=== PATIENT | female | born 1945 | race Two or more races ===

== ENCOUNTER 2024-08-08 10:08 | Inpatient (IN) | payer OTHER ==
[~2024-08-08] VITALS: Ht 162.6 cm; Wt 42.4 kg
--- NOTE | 2024-08-08 10:18 | ED.PDOC ---
Altered Mental Status HPI Comments 78 year old female ARLETH presents to the ED with chief complaint of ALOC and fall. EMS reports patient is coming from a skilled nursing where she had fallen 3 days ago, injuring her left foot. EMS relays that the staff at the skilled nursing has noted the patient is more altered than usual for the past 3 days, locking h erself in her room as well, and appearing A/O x1. Patient able to move all extremities. EMS notes patient patient has not been taking her dementia and psychiatric medication. Patient unable to answer questions at this time. 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: Unknown Family History Family History: Reviewed,noncontributory to illness, Unknown Social History Smoker: Non-Smoker Alcohol: Denies ETOH Use Drugs: Denies Drug Use Lives In: Assisted Care, [facility] Unable to Obtain due to: Altered Mental Status All Other Systems: Reviewed and Negative Physical Exam General Appearance: Moderate Distress, Normal HEENT: Normal ENT Inspection, PERRL/EOMI Neck: Full Range of Motion, Non-Tender, Normal, Normal Inspection Respiratory: Chest Non-Tender, Lungs Clear, No Accessory Muscle Use, No Respiratory Distress, Normal Breath Sounds Cardiovascular: No Edema, No JVD, No Murmur, No Gallop, Normal Peripheral Pulses, Regular Rate/Rhythm Breast Exam: Deferred Gastrointestinal: No Organomegaly, Non Tender, No Pulsatile Mass, Normal Bowel Sounds, Soft Genitalia: Deferred Pelvic: Deferred Rectal: Deferred Extremities: No calf tenderness, Normal capillary refill, Normal inspection, Normal range of motion, Non-tender, No pedal edema Musculoskeletal : Apperance: Normal Neurologic: Disoriented, No Motor Deficits, No Sensory Deficits Cerebellar Function: NOT DONE Reflexes: NOT DONE Skin: Dry, Normal Color, Warm Peripheral Pulses: 3+ Radial (R), 3+ Radial (L) Lymphatic: No Adenopathy Was a procedure done? Was a procedure done?: No Differential Diagnosis (ALOC) Differential Diagnosis: Dehydration, Encephalopathy X-Ray, Labs, Meds, VS Vital Signs Date Time Temp Pulse Resp B/P (MAP) Pulse Ox O2 Delivery O2 Flow Rate FiO2 08/08/24 10:10 97.0 74 18 139/78 (98) 96 97.0 Lt Foot XR: Limited examination secondary to patient positioning. There is no evidence of acute fracture or dislocation. Soft tissues are unremarkable. Patient disoriented. Moving all extremities. Chest x-ray reviewed does not show any acute changes. Vitals stable. Unable to get a history from the patient. She has not been taking her medication. Psychiatric history. Possible sepsis from urinary tract infection. No sign of any injuries pain She will need psychiatric evaluation after medical clearance. Continue to monitor. Images Reviewed?: Images reviewed and evaluated by me Time of 1ST Reevaluation: 11:14 Reevaluation 1ST: Unchanged Patient Education/Counseling: Diagnosis, Treatment Family Education/Counseling: No Family Present Additional Information Previous visit documents reviewed: None The following tests were ordered, and results were reviewed by me: BMP, CBC, UA, Troponin, Left foot XR Additional Information was gathered from interviewing the following independent historians: EMS I reviewed and agreed with the following test results read by other providers: Left foot XR I discussed treatment and results with medical personnel and: Patient Departure 1 Departure Time of Disposition: 13:37 Impression: Primary Impression: Metabolic encephalopathy Disposition: ADMITTED INPATIENT Admit to: Med Surg Condition: Guarded Critical Care Note Critical Care Time?: No Stability Stability form required: No Heart Score Heart Score: Heart Score Response (Comments) Value History N/A 0 EKG N/A 0 Age N/A 0 Risk Factors N/A 0 Troponin N/A 0 Total 0 I personally scribed for JACK GRIFFITH MD ([email or web address]) on 08/08/24 at 10:18. Electronically submitted by Xu Goldberg ([email or web address]). I personally scribed for JACK GRIFFITH MD ([email or web address]) on 08/08/24 at 13:17. Electronically submitted by Xu Goldberg ([email or web address]). JACK GRIFFITH MD Aug 08, 2024 10:18
--- NOTE | 2024-08-08 12:04 | DVH ---
CLINICAL INDICATION: Trauma TECHNIQUE: XY L FOOT 2 VIEW XRAY Comparison: None FINDINGS/IMPRESSION: : Limited examination secondary to patient positioning. There is no evidence of acute fracture or dislocation. Soft tissues are unremarkable.
[2024-08-08 14:54] LABS: Basophils # (auto) 0.1 10 ^3/uL (0-0.2); Basophils % (auto) 1.2 % (0.0-2.0); Eosinophils # (auto) 0 10 ^3/uL (0-0.8); Eosinophils % (auto) 0.4 % (0.0-7.0); Hematocrit 39.4 % (36.0-46.0); Hemoglobin 12.8 g/dL (12.2-16.2); Lymphocytes % (auto) 19.4 % (10.0-50.0); Mean Corpuscular Hemoglobin 29.3 pg (28.0-32.0); Mean Corpuscular Hgb Conc. 32.4 g/dL (32.0-36.0); Mean Corpuscular Volume 90.6 fL (80.0-100.0); Monocytes # (auto) 0.3 10 ^3/uL (0-1.3); Platelet Count (auto) 247 10^3/uL (140-450); Red Blood Cells 4.35 10^6/uL (4.0-5.20); Red Cell Distribution Width 15.2 % (11.8-14.3); White Blood Cell 5.4 10^3/uL (4.4-10.8)
[2024-08-08 15:07] LABS: Chloride 106 mmol/L (98-107); Potassium 4.3 mmol/L (3.5-5.1); Sodium 142 mmol/L (136-145)
[2024-08-08 15:08] LABS: Anion Gap 8 (5-15); Calcium 10.2 mg/dL (8.7-10.4); Carbon Dioxide 28 mmol/L (20-31)
[2024-08-08 15:13] LABS: BUN/Creatinine Ratio 22.1 (10.0-20.0); Blood Urea Nitrogen 21 mg/dL (9-23); Glucose 89 mg/dL (74-106)
[2024-08-08] MEDS: SODIUM CHLORIDE 0.9% 1,000 ML IV SCH (16:15)
[2024-08-08] MEDS ORDERED: HYDROcodone-ACET 5/325MG TAB PO PRN (16:15)
[2024-08-08] MEDS ORDERED: ONDANSETRON HCL 4 MG/2 ML VIAL IV PRN (16:15)
[2024-08-08] MEDS ORDERED: DOCUSATE SOD 100 MG CAP PO PRN (16:15)
[2024-08-08] MEDS ORDERED: ACETAMINOPHEN 325 MG TAB PO PRN (16:15)
--- NOTE | 2024-08-08 16:18 | DVHHP2 ---
History of Present Illness Reason for Visit: Metabolic encephalopathy History of Present Illness The patient is a 78-year-old female with past medical history of dementia and hypertension who presented to [facility] ED for evaluation of altered level of consciousness. Patient reports experiencing generalized weakn ess had a fall 3 days prior injuring her left foot, noted by staff member at [facility] altered than usual for the past 3 days, locking herself in her room, loss of appetite, getting worse that prompted this visit. Patient was seen and evaluated in the ED, laboratory data shows WBC 5.4, platelets 247, sodium 142, potassium 4.3, BUN 21, creatinine 0.95, GFR 61, glucose 89, troponin 12. Left foot x-ray showed no evidence of acute fracture or dislocation, soft tissue unremarkable. Please see medication orders section in the computer. On my assessment, patient denies chest pain, no headache, no dizziness, no shortness of breaths, no abdominal pain, no diarrhea, no nausea, no vomiting, no fever, no chills. Patient was admitted for further evaluation and medical management. Past Medical History Dementia, HTN Past Surgical History No surgical history on file Family History Reviewed, noncontributory to the management of this case. Past Social History Patient lives at assisted care assisted, denies smoking, no alcohol or illicit drugs abuse. Review of Systems Constitutional: Yes: Weakness; No: Fever, Chills, Sweats, Malaise, Other Eyes: No: Pain, Vision change, Conjunctivae inflammation, Eyelid inflammation, Other, Redness ENT: No: Ear pain, Ear discharge, Nose pain, Nose discharge, Nose congestion, Mouth pain, Mouth swelling, Throat pain, Throat swelling, Other Respiratory: No: Cough, Dry, Shortness of breath, SOB with excertion, Wheezing, Hemoptysis, Pleuritic Pain, Sputum, Wheezing, Other Cardiovascular: No: Chest Pain, Palpitations, Orthopnea, Paroxysmal Noc. Dyspnea, Edema, Lt Headedness, Other Gastrointestinal: No: Nausea, Vomiting, Abdominal Pain, Diarrhea, Constipation, Melena, Hematochezia, Other Genitourinary: No Dysuria, No Frequency, No Incontinence, No Hematuria, No Retention, No Other Musculoskeletal: No: other, neck pain, shoulder pain, arm pain, back pain, hand pain, leg pain, foot pain Skin: No: Rash, Lesions, Jaundice, Bruising, Other Neurological: Other (Altered level of consciousness); No: Weakness, Numbness, Incoordination, Change in speech, Confusion, Seizures Allergies: Coded Allergies: Simvastatin (Verified Allergy, Unknown, 08/08/24) Medications Current Medications Medications Dose Ordered Sig/Carlyn Route Start Time Stop Time Status Last Admin Dose Admin Sodium Chloride 1,000 ml @ 60 mls/hr [id number] IV 08/08/24 16:15 UNV Acetaminophen/ Hydrocodone Bitart 1 tab Q4HP PRN PO 08/08/24 16:15 UNV Ondansetron HCl 4 mg Q4HP PRN IV 08/08/24 16:15 UNV Docusate Sodium 100 mg BIDPRN PRN PO 08/08/24 16:15 UNV Acetaminophen 650 mg Q6HP PRN PO 08/08/24 16:15 UNV Exam Vital Signs Vital Signs Date Time Temp Pulse Resp B/P (MAP) Pulse Ox O2 Delivery O2 Flow Rate FiO2 08/08/24 10:10 97.0 74 18 139/78 (98) 96 97.0 General Appearance: Alert, Cooperative, No acute distress, Other (Oriented x2) HEENT: Atraumatic, PERRLA, EOMI, Mucous membr. moist/pink Respiratory: Clear to auscultation, Normal air movement Cardiovascular: Regular rate, Normal S1, Normal S2, No murmurs Abdominal: Normal bowel sounds, Soft, No tenderness, No hepatospenomegaly, No masses Extremities: No clubbing, No cyanosis, No edema, Normal pulses, No tenderness/swelling Skin: No rashes, No breakdown, No significant lesion Neuro: Normal speech, Normal tone, Sensation intact, Cranial nerves 3-12 NL, Reflexes 2+, Other (Generalized weakness) Psych/Mental Status: Mental status NL, Mood NL Labs/Xrays Labs Test 08/08/24 14:24 Range/Units White Blood Count 5.4 4.4-10.8 10^3/uL Red Blood Count 4.35 4.0-5.20 10^6/uL Hemoglobin 12.8 12.2-16.2 g/dL Hematocrit 39.4 36.0-46.0 % Mean Corpuscular Volume 90.6 80.0-100.0 fL Mean Corpuscular Hemoglobin 29.3 28.0-32.0 pg Mean Corpuscular Hemoglobin Concent 32.4 32.0-36.0 g/dL Red Cell Distribution Width 15.2 H 11.8-14.3 % Platelet Count 247 140-450 10^3/uL Mean Platelet Volume 9.4 6.9-10.8 fL Neutrophils (%) (Auto) 74.0 37.0-80.0 % Lymphocytes (%) (Auto) 19.4 10.0-50.0 % Monocytes (%) (Auto) 5.0 0.0-12.0 % Eosinophils (%) (Auto) 0.4 0.0-7.0 % Basophils (%) (Auto) 1.2 0.0-2.0 % Neutrophils # (Auto) 4.0 1.6-8.6 10 ^3/uL Lymphocytes # (Auto) 1.0 0.4-5.4 10 ^3/uL Monocytes # (Auto) 0.3 0-1.3 10 ^3/uL Eosinophils # (Auto) 0 0-0.8 10 ^3/uL Basophils # (Auto) 0.1 0-0.2 10 ^3/uL Nucleated Red Blood Cells 0.0 % Sodium Level 142 136-145 mmol/L Potassium Level 4.3 3.5-5.1 mmol/L Chloride Level 106 98-107 mmol/L Carbon Dioxide Level 28 20-31 mmol/L Anion Gap 8 5-15 Blood Urea Nitrogen 21 9-23 mg/dL Creatinine 0.95 0.550-1.02 mg/dL Glomerular Filtration Rate Calc 61 >90 mL/min BUN/Creatinine Ratio 22.1 H 10.0-20.0 Serum Glucose 89 74-106 mg/dL Calcium Level 10.2 8.7-10.4 mg/dL Troponin I High Sensitivity 12 </=34 ng/L PATIENT: PEPE HERNANDES ACCT: [id number] UNIT: [id number] : 1945 LOC: ER ROOM / BED: / AGE / SEX: 78 / F ADM STATUS: REG ER SERVICE 1012 ORDERING PHYSICIAN: JACK GRIFFITH MD PROCEDURE(s): LFOT2 - L FOOT 2 VIEW XRAY REASON: fall ORDER NUMBER(s): [id number], ACCESSION NUMBER(s): [id number] CLINICAL INDICATION: Trauma TECHNIQUE: XY L FOOT 2 VIEW XRAY Comparison: None FINDINGS/IMPRESSION: : Limited examination secondary to patient positioning. There is no evidence of acute fracture or dislocation. Soft tissues are unremarkable. Assessment/Plan Assessment/Plan Metabolic encephalopathy Adult failure to thrive Generalized weakness Plan 1. Admit to telemetry unit 2. Breathing treatment 3. Pain control management 4. Management of fluids and electrolytes 5. Consultation for hospitalist 6. Diagnostic tests left foot x-ray 7. DVT prophylaxis-on SCDs 8. Repeat labs CBC, CMP in a.m. 9. Continue with current medical management 10. Treatment plan discussed with patient and RN. Patient will need reinstatement of information given mental status. Plan discussed with: Patient, Other (RN) My Orders Orders - CAS ALVA DNP Procedure Category Date Status Time Allergies TERRA 08/08/24 In Process 16:09 Code Status CODE 08/08/24 Transmitted 16:09 Sodium Chloride 0.9% PHA 08/08/24 Logged 16:15 Oxygen Per Hour RT 08/08/24 Transmitted 16:09 Hydrocodone-Acet PHA 08/08/24 Logged 5/325mg Tab ([place] 16:15 Ondansetron Hcl PHA 08/08/24 Logged (Zofran) 16:15 Docusate Sodium PHA 08/08/24 Logged Capsule (Colace 16:15 Fall Risk Precautions TERRA 08/08/[address] 16:09 Complete Blood Count LAB 08/09/24 Verified 04:00 Comprehensive LAB 08/09/24 Verified Metabolic Panel 04:00 Cardiac DIET 08/08/24 Transmitted Diet-2gna,Lofat,Lochol Dinner Condition: Serious TERRA 08/08/24 In Process 16:09 Acetaminophen Tablet PHA 08/08/24 Logged (Tylenol Tablet) 16:15 Bedrest With Bathroom TERRA 08/08/24 In Process Privileg 16:09 Sequential TERRA 08/08/24 In Process Compression Device Problem List: (1) Metabolic encephalopathy (2) Adult failure to thrive (3) Generalized weakness Date of Service: Aug 08, 2024 Billing Provider: CAS ALVA DNP Common Visit Codes: [id number] INP/OBS CARE (HIGH) CAS ALVA DNP Aug 08, 2024 16:18
[2024-08-08] MEDS ORDERED: MORPHINE SULFATE INJ 2 MG/ml SYRG IV PRN (16:30)
[2024-08-08] MEDS ORDERED: NITROGLYCERIN 0.4 MG SL TAB SL PRN (16:30)
[2024-08-08 21:51] VITALS: O2SAT 96
[2024-08-08 22:30] VITALS: PULSE 65; RESP 11; O2SAT 95
[2024-08-09 05:36] LABS: Basophils # (auto) 0.1 10 ^3/uL (0-0.2); Basophils % (auto) 1.5 % (0.0-2.0); Eosinophils # (auto) 0.1 10 ^3/uL (0-0.8); Eosinophils % (auto) 1.2 % (0.0-7.0); Hematocrit 38.6 % (36.0-46.0); Hemoglobin 12.8 g/dL (12.2-16.2); Lymphocytes # (auto) 1.3 10 ^3/uL (0.4-5.4); Lymphocytes % (auto) 27.5 % (10.0-50.0); Mean Corpuscular Hemoglobin 30.5 pg (28.0-32.0); Mean Corpuscular Hgb Conc. 33.1 g/dL (32.0-36.0); Mean Corpuscular Volume 92.2 fL (80.0-100.0); Monocytes # (auto) 0.4 10 ^3/uL (0-1.3); Monocytes % (auto) 7.5 % (0.0-12.0); Neutrophils % (auto) 62.3 % (37.0-80.0); Nucleated Red Blood Cells % 0.2 %; Platelet Count (auto) 141 10^3/uL (140-450); Red Blood Cells 4.19 10^6/uL (4.0-5.20); Red Cell Distribution Width 14.9 % (11.8-14.3); White Blood Cell 4.7 10^3/uL (4.4-10.8)
[2024-08-09 05:44] LABS: Albumin 4.3 g/dL (3.2-4.8); Alkaline Phosphatase 103 U/L (46-116); Anion Gap 9 (5-15); BUN/Creatinine Ratio 20.3 (10.0-20.0); Blood Urea Nitrogen 16 mg/dL (9-23); Calcium 10.3 mg/dL (8.7-10.4); Carbon Dioxide 23 mmol/L (20-31); Potassium 4.1 mmol/L (3.5-5.1); Sodium 141 mmol/L (136-145)
[2024-08-09 05:49] LABS: Alanine Aminotransferase 44 U/L (7-40); Aspartate Aminotransferase 49 U/L (13-40); Chloride 109 mmol/L (98-107); Glucose 56 mg/dL (74-106)
[2024-08-09 08:00] VITALS: PULSE 60; RESP 12; O2SAT 95
--- NOTE | 2024-08-09 15:16 | DVHPN2 ---
Assessment/Plan Assessment/Plan progress note 78 F with dementia admitted for ALOC. Patient came in from assisted however, when she was to be transfered she became violent and was brought in to ED. also has leg pain s/p fall physical exam frail elderly lady aox1 clear breath soudns abdomen soft nontender no le edema labs ekg imaging reviewed assessment and plan dementia? rule out reversible causes of delirium failure to thrive protein calorie malnutrition collect UA, THS B1 B12 RPR, HIV hold abx until ua diet consult ensure PT diet cardiac dvt ppx hold Plan discussed with: Other My Orders Orders - PASCUAL MAGALLANES MD Procedure Category Date Status Time Discontinue Tele TERRA 08/09/24 Verified 15:07 Urinalysis LAB 08/09/24 Verified 15:07 Treponema Pallidum LAB 08/09/24 Verified Antibody 15:07 Vitamin B1 (Thiamine) LAB 08/09/24 Verified 15:07 Vitamin B12 LAB 08/09/24 Verified 15:07 Folate (Folic Acid) LAB 08/09/24 Verified 15:07 Chlamydia/Gc LAB 08/09/24 Verified Amplification 15:07 Thyroid Stimulating LAB 08/09/24 Verified Hormone 15:07 Basic Metabolic Panel LAB 08/10/24 Verified 04:00 Complete Blood Count LAB 08/10/24 Verified 04:00 Magnesium LAB 08/10/24 Verified 04:00 Phosphorus LAB 08/10/24 Verified 04:00 Date of Service: Aug 09, 2024 Billing Provider: PASCUAL MAGALLANES MD Common Visit Codes: [id number] INP/OBS CARE(MOD) PASCUAL MAGALLANES MD Aug 09, 2024 15:16
[2024-08-09] MEDS ORDERED: ACETAMINOPHEN 325 MG TAB PO PRN (15:30)
[2024-08-09] MEDS ORDERED: IBUPROFEN 400 MG TAB PO PRN (15:30)
[2024-08-09 16:14] LABS: Folate (Folic Acid) 16.33 ng/mL (>5.38)
[2024-08-09 17:00] VITALS: BP 121/67; PULSE 65; RESP 16; TEMP 97.8; O2SAT 99
[2024-08-09] MEDS: Ensure HIGH Protein Chocolate 8oz Bottle PO SCH (18:28)
[2024-08-09 20:00] VITALS: PULSE 76
[2024-08-09 21:00] VITALS: BP 111/63; PULSE 75; RESP 16; TEMP 97.9; O2SAT 99
[2024-08-09] MEDS: MELATONIN 5 MG TAB PO SCH (21:19)
[2024-08-10] VITALS (8 sets, daily range): BP systolic 91–135; BP diastolic 59–77; PULSE 65–100; RESP 16–20; TEMP 97.4–99.3; O2SAT 94–100
[2024-08-10 06:45] LABS: Basophils # (auto) 0 10 ^3/uL (0-0.2); Basophils % (auto) 0.8 % (0.0-2.0); Eosinophils # (auto) 0.1 10 ^3/uL (0-0.8); Eosinophils % (auto) 1.4 % (0.0-7.0); Hemoglobin 12.3 g/dL (12.2-16.2); Lymphocytes # (auto) 1.2 10 ^3/uL (0.4-5.4); Lymphocytes % (auto) 22.6 % (10.0-50.0); Mean Corpuscular Hemoglobin 30.4 pg (28.0-32.0); Mean Corpuscular Volume 89.4 fL (80.0-100.0); Monocytes # (auto) 0.3 10 ^3/uL (0-1.3); Monocytes % (auto) 5.3 % (0.0-12.0); Neutrophils # (auto) 3.7 10 ^3/uL (1.6-8.6); Neutrophils % (auto) 69.9 % (37.0-80.0); Platelet Count (auto) 230 10^3/uL (140-450); Red Blood Cells 4.03 10^6/uL (4.0-5.20); Red Cell Distribution Width 14.7 % (11.8-14.3); White Blood Cell 5.3 10^3/uL (4.4-10.8)
[2024-08-10 07:04] LABS: Anion Gap 8 (5-15); Carbon Dioxide 25 mmol/L (20-31); Potassium 4.5 mmol/L (3.5-5.1); Sodium 140 mmol/L (136-145)
[2024-08-10 07:05] LABS: Calcium 9.7 mg/dL (8.7-10.4)
[2024-08-10 07:10] LABS: BUN/Creatinine Ratio 32.5 (10.0-20.0); Glucose 83 mg/dL (74-106)
[2024-08-10 07:12] LABS: Phosphorus 3.9 mg/dL (2.4-5.1)
[2024-08-10 07:14] LABS: Blood Urea Nitrogen 27 mg/dL (9-23); Chloride 107 mmol/L (98-107)
[2024-08-10] MEDS: LEVOTHYROXINE SODIUM 25 MCG TAB PO ONE (09:40)
--- NOTE | 2024-08-10 11:10 | DVHPN2 ---
Assessment/Plan Assessment/Plan progress note 78 F with dementia admitted for ALOC. Patient came in from [facility] however, when she was to be transfered she became violent and was brought in to ED. also has leg pain s/p fall seen by me today during rounds, elevated tsh, adding synthroid. mental status improved physical exam frail elderly lady aox3 clear breath soudns abdomen soft nontender no le edema labs ekg imaging reviewed assessment and plan dementia? rule out reversible causes of delirium hypothyroidism failure to thrive protein calorie malnutrition collect UA, THS B1 B12 RPR, HIV hold abx until ua diet consult ensure PT diet cardiac dvt ppx hold Plan discussed with: Patient My Orders Orders - PASCUAL MAGALLANES MD Procedure Category Date Status Time Discontinue Tele TERRA 08/09/24 In Process 15:07 Urinalysis LAB 08/09/24 Logged 15:07 Vitamin B1 (Thiamine) LAB 08/09/24 In Process 15:07 Haloperidol Lactate PHA 08/09/24 In Process Injection (Haldol) 15:30 Communication Order ORDERS 08/09/24 Transmitted 15:16 Melatonin (Melatonin) PHA 08/09/24 In Process 22:00 * Dietary Consult CONS 08/09/24 Transmitted 15:20 Nutritional PHA 08/09/24 In Process Supplements (Ensure 18:00 Acetaminophen Tablet PHA 08/09/24 In Process (Tylenol Tablet) 15:30 Ibuprofen Tablet PHA 08/09/24 In Process (Motrin Tablet) 15:30 * Electromechanical Inspector CONS 08/09/24 Transmitted Consult Thyroid Panel LAB 08/10/24 In Process 08:16 Levothyroxine Tablet PHA 08/11/24 In Process (Synthroid Tablet) 06:00 Date of Service: Aug 10, 2024 Billing Provider: PASCUAL MAGALLANES MD Common Visit Codes: [id number] INP/OBS CARE(MOD) PASCUAL MAGALLANES MD Aug 10, 2024 11:10
[2024-08-11 00:16] LABS: Urine Bacteria FEW /hpf (None Seen); Urine Blood Negative /uL (Negative); Urine Clarity Turbid (Clear); Urine Color Yellow (Yellow); Urine Mucus FEW (None Seen); Urine Protein, UAD TRACE (Negative); Urine Squamous Epithelial Cell FEW /hpf (<5); Urine Urobilinogen Normal (Negative); Urine WBC 187 /HPF (0-5)
[2024-08-11 00:24] LABS: Amphetamine Screen, Urine Neg (NEGATIVE); Barbiturate Scree,Urine Neg (NEGATIVE); Benzodiazephine Screen, Urine Neg (NEGATIVE); Cannabinoid Screen, Urine Neg (NEGATIVE); Cocaine Screen, Urine Neg (NEGATIVE); Opiate Scree,Urine Neg (NEGATIVE); Phencyclidine Screen, Urine Neg (NEGATIVE)
[2024-08-11 01:00] VITALS: BP 93/51; PULSE 71; RESP 18; TEMP 98.8; O2SAT 99
[2024-08-11 05:00] VITALS: BP 98/54; PULSE 67; RESP 18; TEMP 98.1; O2SAT 95
[2024-08-11] MEDS: LEVOTHYROXINE SODIUM 25 MCG TAB PO SCH (05:59)
[2024-08-11 08:07] LABS: Free Thyroxine Index 1.3 (1.2-4.9); Thyroxine (T4) 5.8 ug/dL (4.5-12.0)
[2024-08-11 09:00] VITALS: BP 107/58; PULSE 75; RESP 17; TEMP 98; O2SAT 96
[2024-08-11] MEDS: cefTRIAXone 2GM/50ML D5W 50 ML IV ONE (12:02)
[2024-08-11 16:53] VITALS: BP 104/53; PULSE 62; RESP 17; TEMP 97.9; O2SAT 99
[2024-08-11 21:00] VITALS: BP 104/58; PULSE 97; RESP 16; TEMP 97.6; O2SAT 96
[2024-08-12 01:00] VITALS: BP 106/52; PULSE 83; RESP 12; TEMP 97.5; O2SAT 98
[2024-08-12 05:00] VITALS: BP 99/59; PULSE 84; RESP 16; TEMP 97.6; O2SAT 96
[2024-08-12 08:40] VITALS: BP 127/71; PULSE 101; RESP 18; TEMP 97.9; O2SAT 95
[2024-08-12] MEDS: cefTRIAXone 1GM/50ML D5W 50 ML IV SCH (09:43)
[2024-08-12 13:00] VITALS: BP 96/56; PULSE 85; RESP 18; TEMP 98.1; O2SAT 98
[2024-08-12 17:01] VITALS: BP 112/45; PULSE 84; RESP 16; TEMP 97.9; O2SAT 96
--- NOTE | 2024-08-12 20:07 | DVHPN2 ---
Assessment/Plan Assessment/Plan progress note 78 F with dementia admitted for ALOC. [facility], when she was to be transfered she became violent and was brought in to ED. also has leg pain s/p fall seen by me today during rounds, no complaints. pending dc planning physical exam frail elderly lady aox3 clear breath soudns abdomen soft nontender no le edema labs ekg imaging reviewed assessment and plan dementia? temporal? rule out reversible causes of delirium hypothyroidism failure to thrive protein calorie malnutrition UTI possible paranoia collect UA, TSH B1 B12 RPR, HIV ceftriaxone diet consult ensure PT diet cardiac dvt ppx hold Plan discussed with: Patient Date of Service: Aug 12, 2024 Billing Provider: PASCUAL MAGALLANES MD Common Visit Codes: [id number] INP/OBS CARE(MOD) PASCUAL MAGALLANES MD Aug 12, 2024 20:07
[2024-08-12 21:00] VITALS: BP 97/55; PULSE 86; RESP 18; TEMP 97.6; O2SAT 95
[2024-08-13 08:00] VITALS: PULSE 73; RESP 15
[2024-08-13 09:00] VITALS: BP 112/53; PULSE 73; RESP 15; TEMP 97.9; O2SAT 95
[2024-08-13 13:00] VITALS: BP 113/69; PULSE 96; RESP 16; TEMP 97.4; O2SAT 96
--- NOTE | 2024-08-13 14:06 | DVHPN2 ---
Assessment/Plan Assessment/Plan progress note 78 F with dementia admitted for ALOC. Patient came in from [facility] however, when she was to be transfered she became violent and was brought in to ED. also has leg pain s/p fall seen by me today during rounds, ithcing back and head. pending dc planning physical exam frail elderly lady aox3 clear breath soudns abdomen soft nontender no le edema labs ekg imaging reviewed assessment and plan dementia? temporal? rule out reversible causes of delirium hypothyroidism failure to thrive protein calorie malnutrition UTI possible paranoia collect UA, TSH B1 B12 RPR, HIV ceftriaxone diet consult ensure PT diet cardiac dvt ppx hold Plan discussed with: Patient Date of Service: Aug 13, 2024 Billing Provider: PASCUAL MAGALLANES MD Common Visit Codes: [id number] INP/OBS CARE(HIGH) PASCUAL MAGALLANES MD Aug 13, 2024 14:06
[2024-08-13] MEDS: LORATADINE 10 MG TAB PO ONE (14:15)
[2024-08-13 17:00] VITALS: BP 112/62; PULSE 87; RESP 12; TEMP 97.9; O2SAT 97
[2024-08-13 21:00] VITALS: BP 98/54; PULSE 87; RESP 14; TEMP 98; O2SAT 99
[2024-08-14 01:00] VITALS: BP 109/71; PULSE 98; RESP 14; TEMP 97.4; O2SAT 98
[2024-08-14 08:00] VITALS: PULSE 69; RESP 15
[2024-08-14 08:01] LABS: Basophils # (auto) 0 10 ^3/uL (0-0.2); Basophils % (auto) 0.9 % (0.0-2.0); Eosinophils # (auto) 0.1 10 ^3/uL (0-0.8); Eosinophils % (auto) 1.2 % (0.0-7.0); Hematocrit 34.1 % (36.0-46.0); Hemoglobin 11.2 g/dL (12.2-16.2); Lymphocytes # (auto) 0.9 10 ^3/uL (0.4-5.4); Lymphocytes % (auto) 21.1 % (10.0-50.0); Mean Corpuscular Hemoglobin 29.6 pg (28.0-32.0); Mean Corpuscular Hgb Conc. 32.9 g/dL (32.0-36.0); Monocytes # (auto) 0.4 10 ^3/uL (0-1.3); Monocytes % (auto) 8.4 % (0.0-12.0); Neutrophils % (auto) 68.4 % (37.0-80.0); Nucleated Red Blood Cells % 0.1 %; Platelet Count (auto) 215 10^3/uL (140-450); Red Blood Cells 3.78 10^6/uL (4.0-5.20); Red Cell Distribution Width 14.8 % (11.8-14.3); White Blood Cell 4.4 10^3/uL (4.4-10.8)
[2024-08-14 08:22] LABS: Anion Gap 6 (5-15); Chloride 99 mmol/L (98-107); Potassium 4.7 mmol/L (3.5-5.1); Sodium 140 mmol/L (136-145)
[2024-08-14 08:24] LABS: Calcium 10.1 mg/dL (8.7-10.4)
[2024-08-14 08:27] LABS: Carbon Dioxide 35 mmol/L (20-31)
[2024-08-14 08:28] LABS: Glucose 78 mg/dL (74-106)
[2024-08-14 08:29] LABS: BUN/Creatinine Ratio 42.1 (10.0-20.0)
[2024-08-14 08:30] LABS: Blood Urea Nitrogen 40 mg/dL (9-23)
[2024-08-14 09:09] VITALS: BP 96/60; PULSE 69; RESP 18; TEMP 98.2; O2SAT 98
[2024-08-14 13:00] VITALS: BP_SYST 103; BP_SYST 155; BP_DIAS 58; BP_DIAS 66; PULSE 101; PULSE 87; RESP 18; RESP 21; TEMP 98.3; TEMP 98.5; O2SAT 91; O2SAT 95
--- NOTE | 2024-08-14 15:01 | DVHPN2 ---
Subjective Seen and examined at bedside, cont Abx. Start Synthroid. Get swallow eval. Will get CT CHEST / ABD / PELVIS as patient is having weight loss. Changes from previous H/P or p: No Changes Eyes: No Pain, No Vision change, No Conjunctivae inflammation, No Eyelid inflammation, No Other, No Redness ENT: No Ear pain, No Ear discharge, No Nose pain, No Nose discharge, No Nose congestion, No Mouth pain, No Mouth swelling, No Throat pain, No Throat swelling, No Other Cardiovascular: No Chest Pain, No Palpitations, No Orthopnea, No Paroxysmal Noc. Dyspnea, No Edema, No Lt Headedness, No Other Respiratory: No Cough, No Dry, No Shortness of breath, No SOB with excertion, No Wheezing, No Hemoptysis, No Pleuritic Pain, No Sputum, No Other Gastrointestinal: No Nausea, No Vomiting, No Abdominal Pain, No Diarrhea, No Constipation, No Melena, No Hematochezia, No Other Genitourinary: No Dysuria, No Frequency, No Incontinence, No Hematuria, No Retention, No Other Musculoskeletal: No other, No neck pain, No shoulder pain, No arm pain, No back pain, No hand pain, No leg pain, No foot pain Skin: No Rash, No Lesions, No Jaundice, No Bruising, No Other Objective Vitals Vital Signs Date Time Temp Pulse Resp B/P (MAP) Pulse Ox O2 Delivery O2 Flow Rate FiO2 08/14/24 13:00 98.5 87 18 103/58 (73) 95 98.5 08/14/24 08:00 Room Air* 0 21 Intake/Output Intake and Output 08/14/24 07:00 Intake Total 1390 ml Balance 1390 ml Intake Oral 1340 ml IV Total 50 ml # Voids 4 # Bowel Movements 3 Exam Gen: in bed thin Cvs: N S1/S2, RRR Resp: BLAE Abd: Thin, Cachectic Client Program Manager: AAx 3 Medications Current Medications Medications Dose Ordered Sig/Carlyn Route Start Time Stop Time Status Last Admin Dose Admin Haloperidol Lactate 2.5 mg Q8HP PRN IM 08/09/24 15:30 Melatonin 5 mg HS PO 08/09/24 22:00 08/09/24 21:19 5 MG Enteral Nutritional Formula 240 ml TIDWM PO 08/09/24 18:00 08/14/24 12:00 240 ML Acetaminophen 650 mg Q6HP PRN PO 08/09/24 15:30 Ibuprofen 400 mg Q8HP PRN PO 08/09/24 15:30 Levothyroxine Sodium 25 mcg QAM@0600 PO 08/11/24 06:00 08/14/24 05:03 25 MCG Ceftriaxone Sodium 50 ml @ 100 mls/hr DAILY@09 IV 08/12/24 09:00 08/14/24 09:52 100 MLS/HR Laboratory Results Laboratory Tests 08/14/24 07:17 Chemistry Test 08/14/24 07:17 Calcium Level 10.1 mg/dL (8.7-10.4) Urinalysis Test 08/10/24 23:40 Urine Color Yellow (Yellow) Urine Clarity Turbid (Clear) H Urine pH 5.0 (5.0-9.0) Urine Specific [place] 1.020 (1.001-1.035) Urine Protein Trace (Negative) H Urine Ketones Trace (Negative) Urine Blood Negative /uL (Negative) Urine Nitrite Negative (Negative) Urine Bilirubin Negative (Negative) Urine Urobilinogen Normal mg/dL (Negative) Urine Leukocyte Esterase 3+ /uL (Negative) Urine RBC 5 /hpf (0 - 4) Urine Microscopic WBC 187 /HPF (0-5) H Urine Squamous Epithelial Cells Few /hpf (<5) Urine Calcium Oxalate Crystals Many (None Seen) Urine Bacteria Few /hpf (None Seen) H Urine Mucus Few (None Seen) Urine Glucose Normal mg/dL (Normal) Assessment/Plan Assessment/Plan Metabolic Encephalopathy- Likely due to Complicated Cystitis Uncontrolled Hypothyroid- Synthroid Protein Calorie Malnutrition- Dietary Consult Dysphagia with weight loss- Swallow Eval, CT Chest Abd Pelvis DVT Prop- SCDs DC Planning Plan discussed with: Patient My Orders Orders - YANELI WAGONER MD Procedure Category Date Status Time Levothyroxine Tablet PHA 08/15/24 Verified (Synthroid Tablet) 06:00 Cyanocobalamin PHA 08/14/24 Verified Injection (Vitamin 15:00 Cyanocobalamin PHA 08/15/24 Verified Injection (Vitamin 10:00 * Swallow Request ST 08/14/24 Verified 14:54 Ct Chest/Ab/Pl W Con- CT 08/14/24 Verified Iv Only 14:54 Date of Service: Aug 14, 2024 Billing Provider: YANELI WAGONER MD Common Visit Codes: [id number] INP/OBS CARE(HIGH) YANELI WAGONER MD Aug 14, 2024 15:01
[2024-08-14] MEDS ORDERED: IOHEXOL 300 MG/ML 100ML BOTTLE IJ ONE ×2 (16:54→17:14)
[2024-08-14] MEDS: CYANOCOBALAMIN (B-12) 1000 MCG/1 ML VIAL IM ONE (17:36)
[2024-08-14 21:00] VITALS: BP 102/50; PULSE 77; RESP 17; TEMP 97.8; O2SAT 95
--- NOTE | 2024-08-14 21:27 | DVH ---
Procedure: CT CT CHEST/AB/PL W CON- IV ONLY 08/14/2024 05:17 PM Indication: malignancy Comparison Study: None Technique: Axial images were obtained and reformatted in coronal and sagittal planes. All CT scans at this medical facility are performed using dose modulation techniques as appropriate to a performed e xam including the following: Automated exposure control was utilized; adjustment of the MA and/or KV according to patient size; and use of iterative reconstruction technique. CT Dose: CTDI volume is 6.0 9 mGy. Dose-length product is 415.04 mGy*cm FINDINGS: Lower neck: Thyroid is diminutive. Cardiomediastinal: The heart is normal in size. Aorta is normal in caliber. No mediastinal lymphadeno brandan. Lungs: No focal pulmonary opacity. No pleural effusion. No pneumothorax. Hepatobiliary: Intrahepatic and extrahepatic ductal dilatation. The common bile duct measures up to 9 mm in caliber. Gallbladder is surgically absent. Spleen: Unremarkable. Pancreas: Unremarkable. Adrenal Glands: Unremarkable. tract: The kidneys are normal in size bilaterally without hydronephrosis . A 7 mm nonobstructing s tone noted in the lower pole of the right kidney. A 5 mm nonobstructing stone seen in the left kidney . Small benign-appearing bilateral renal cysts are seen. The urinary bladder is unremarkable. GI tract: The stomach is grossly normal in appearance. Mildly distended small bowel loops in the uppe r abdomen measuring up to 2.2 cm in caliber. Surgical clips are seen in the left upper quadrant adjac ent to the stomach and small bowel loops. Staple line noted in the left upper quadrant small bowel wa ll. The large bowel is unremarkable. The appendix is not visualized. No inflammatory change is noted in the right lower quadrant. Lymphatics: No mesenteric, retroperitoneal or periportal lymphadenopathy. Vasculature: The abdominal aorta is normal in in caliber. Pelvic Organs: Suboptimal evaluation due to beam hardening artifact from left hip arthroplasty. The uterus and adnexa are not well seen. Bones/soft tissues: Severe right hip joint osteoarthritis with several subchondral cysts. In addition , ill-defined lucent foci are seen in the acetabulum measuring up to 1.9 cm. Total left hip arthropla sty. Other: None. IMPRESSION: 1. Postoperative changes of the stomach and small bowel in the left upper quadrant. Mildly distended small bowel loops in the upper abdomen measuring up to 2.2 cm may represent ileus or developing obst ruction. Recommend clinical and biochemical correlation. 2. Several lucent foci in the right acetabulum measuring up to 2 cm that may represent intraosseous c ysts, primary or metastatic malignancy. Correlate with history of known malignancy. 3. Mild intrahepatic and extrahepatic ductal dilatation likely compensatory post cholecystectomy gaitan ge. 4. No acute or suspicious abnormality in the chest. 5. Nonobstructing bilateral renal calculi.
[2024-08-15] MEDS: LEVOTHYROXINE SODIUM 50 MCG TAB PO SCH (05:39)
[2024-08-15] MEDS: CYANOCOBALAMIN (B-12) 1000 MCG/1 ML VIAL IM SCH (08:36)
[2024-08-15] MEDS ORDERED: GASTROGRAFIN 120 ML SOL ONE (08:54)
[2024-08-15 09:30] VITALS: BP 100/62; PULSE 88; RESP 18; TEMP 97.7; O2SAT 96
[2024-08-15 13:23] VITALS: BP 109/60; PULSE 78; RESP 18; TEMP 98.1; O2SAT 98
--- NOTE | 2024-08-15 14:37 | DVHPN2 ---
Subjective Seen and examined at bedside, reviewed CT CHEST/ABD/PELVIS, patient has an Ileus but patient is having bowel movements. Will await Barium Swallow. Will need bone scan as outpatient Changes from previous H/P or p: No Changes Eyes: No Pain, No Vision change, No Conjunctivae inflammation, No Eyelid inflammation, No Other, No Redness ENT: No Ear pain, No Ear discharge, No Nose pain, No Nose discharge, No Nose congestion, No Mouth pain, No Mouth swelling, No Throat pain, No Throat swelling, No Other Cardiovascular: No Chest Pain, No Palpitations, No Orthopnea, No Paroxysmal Noc. Dyspnea, No Edema, No Lt Headedness, No Other Respiratory: No Cough, No Dry, No Shortness of breath, No SOB with excertion, No Wheezing, No Hemoptysis, No Pleuritic Pain, No Sputum, No Other Gastrointestinal: No Nausea, No Vomiting, No Abdominal Pain, No Diarrhea, No Constipation, No Melena, No Hematochezia, No Other Genitourinary: No Dysuria, No Frequency, No Incontinence, No Hematuria, No Retention, No Other Musculoskeletal: No other, No neck pain, No shoulder pain, No arm pain, No back pain, No hand pain, No leg pain, No foot pain Skin: No Rash, No Lesions, No Jaundice, No Bruising, No Other Objective Vitals Vital Signs Date Time Temp Pulse Resp B/P (MAP) Pulse Ox O2 Delivery O2 Flow Rate FiO2 08/15/24 13:23 98.1 78 18 109/60 (76) 98 98.1 08/15/24 08:00 Room Air* 0 21 Intake/Output Intake and Output 08/15/24 07:00 Intake Total 1600 ml Balance 1600 ml Intake Oral 1600 ml # Voids 6 # Bowel Movements 1 Exam Gen: in bed thin Cvs: N S1/S2, RRR Resp: BLAE Abd: Thin, Cachectic Sales Audit Clerk: AAx 3 Medications Current Medications Medications Dose Ordered Sig/Carlyn Route Start Time Stop Time Status Last Admin Dose Admin Haloperidol Lactate 2.5 mg Q8HP PRN IM 08/09/24 15:30 Melatonin 5 mg HS PO 08/09/24 22:00 08/09/24 21:19 5 MG Enteral Nutritional Formula 240 ml TIDWM PO 08/09/24 18:00 08/14/24 12:00 240 ML Acetaminophen 650 mg Q6HP PRN PO 08/09/24 15:30 Ibuprofen 400 mg Q8HP PRN PO 08/09/24 15:30 Ceftriaxone Sodium 50 ml @ 100 mls/hr DAILY@09 IV 08/12/24 09:00 08/14/24 09:52 100 MLS/HR Levothyroxine Sodium 125 mcg QAM@0600 PO 08/15/24 06:00 Cyanocobalamin 100 mcg DAILY IM 08/15/24 10:00 Laboratory Results Laboratory Tests 08/14/24 07:17 Urinalysis Test 08/10/24 23:40 Urine Color Yellow (Yellow) Urine Clarity Turbid (Clear) H Urine pH 5.0 (5.0-9.0) Urine Specific [place] 1.020 (1.001-1.035) Urine Protein Trace (Negative) H Urine Ketones Trace (Negative) Urine Blood Negative /uL (Negative) Urine Nitrite Negative (Negative) Urine Bilirubin Negative (Negative) Urine Urobilinogen Normal mg/dL (Negative) Urine Leukocyte Esterase 3+ /uL (Negative) Urine RBC 5 /hpf (0 - 4) Urine Microscopic WBC 187 /HPF (0-5) H Urine Squamous Epithelial Cells Few /hpf (<5) Urine Calcium Oxalate Crystals Many (None Seen) Urine Bacteria Few /hpf (None Seen) H Urine Mucus Few (None Seen) Urine Glucose Normal mg/dL (Normal) Assessment/Plan Assessment/Plan Metabolic Encephalopathy- Likely due to Complicated Cystitis Bone Lesions on CT- Bone Scan as outpatient Uncontrolled Hypothyroid- Synthroid Protein Calorie Malnutrition- Dietary Consult Dysphagia with weight loss- Swallow Eval, CT Chest Abd Pelvis reviewed DVT Prop- SCDs DC Planning Plan discussed with: Patient My Orders Orders - YANELI WAGONER MD Procedure Category Date Status Time Levothyroxine Tablet PHA 08/15/24 In Process (Synthroid Tablet) 06:00 Cyanocobalamin PHA 08/15/24 In Process Injection (Vitamin 10:00 * Swallow Request ST 08/14/24 Transmitted 14:54 Ct Chest/Ab/Pl W Con- CT 08/14/24 Resulted Iv Only 14:54 Regular Diet DIET 08/14/24 Transmitted Dinner Esophagus XY 08/15/24 Logged Gastrografin Swallow 08:00 Date of Service: Aug 15, 2024 Billing Provider: YANELI WAGONER MD Common Visit Codes: [id number] INP/OBS CARE(MOD) YANELI WAGONER MD Aug 15, 2024 14:37
[2024-08-15] MEDS: POLYETHYLENE GLYCOL 17 GM PWDR PO ONE (14:45)
[2024-08-15 17:07] VITALS: BP 110/67; PULSE 111; RESP 18; TEMP 98.4; O2SAT 96
[2024-08-15 20:53] VITALS: BP 115/65; PULSE 92; RESP 17; TEMP 97.7; O2SAT 96
[2024-08-16] VITALS (7 sets, daily range): BP systolic 10–109; BP diastolic 54–63; PULSE 78–109; RESP 16–18; TEMP 97.4–98.5; O2SAT 93–99
[2024-08-16] MEDS: LEVOTHYROXINE SODIUM 25 MCG TAB PO SCH (06:09)
[2024-08-16] MEDS ORDERED: GASTROGRAFIN 120 ML SOL ONE (08:28)
--- NOTE | 2024-08-16 10:13 | DVH ---
XY ESOPHAGUS GASTROGRAFIN SWALLOW, HISTORY: DYSPHAGIA COMPARISON: None PROCEDURE: A hog operator radiograph was obtained prior to the procedure. Barium and effervescent granules were administered orally, and radiographs were obtained under intermittent fluoroscopic observation. Total fluoroscopic time was 1 minute. FINDINGS: The hog operator film demonstrates post surgical changes of the stomach. The esophagus was prominent in caliber with no stricture, filling defect or wall irregularity demonst rated. Abnormal esophageal peristalsis was observed. Probable small hiatal hernia seen. IMPRESSION: Mildly abnormal esophageal contraction can be seen with dysmotility. Probable small hiatal hernia. Mild esophageal reflux.
[2024-08-16] MEDS ORDERED: LEVO-849 PO (11:06)
--- NOTE | 2024-08-16 11:10 | DVHDS2 ---
Discharge Summary Date of Admission Aug 08, 2024 at 16:17 Date of Discharge: Aug 16, 2024 Admitting Diagnosis Metabolic Encephalopathy Labs/Diagnostic Data: Laboratory Results Test 08/14/24 07:17 08/10/24 23:40 08/10/24 08:35 08/10/24 06:03 White Blood Count 4.4 10^3/uL (4.4-10.8) Red Blood Count 3.78 10^6/uL (4.0-5.20) Hemoglobin 11.2 g/dL (12.2-16.2) Hematocrit 34.1 % (36.0-46.0) Mean Corpuscular Volume 90.0 fL (80.0-100.0) Mean Corpuscular Hemoglobin 29.6 pg (28.0-32.0) Mean Corpuscular Hemoglobin Concent 32.9 g/dL (32.0-36.0) Red Cell Distribution Width 14.8 % (11.8-14.3) Platelet Count 215 10^3/uL (140-450) Mean Platelet Volume 9.5 fL (6.9-10.8) Neutrophils (%) (Auto) 68.4 % (37.0-80.0) Lymphocytes (%) (Auto) 21.1 % (10.0-50.0) Monocytes (%) (Auto) 8.4 % (0.0-12.0) Eosinophils (%) (Auto) 1.2 % (0.0-7.0) Basophils (%) (Auto) 0.9 % (0.0-2.0) Neutrophils # (Auto) 3.0 10 ^3/uL (1.6-8.6) Lymphocytes # (Auto) 0.9 10 ^3/uL (0.4-5.4) Monocytes # (Auto) 0.4 10 ^3/uL (0-1.3) Eosinophils # (Auto) 0.1 10 ^3/uL (0-0.8) Basophils # (Auto) 0 10 ^3/uL (0-0.2) Nucleated Red Blood Cells 0.1 % Sodium Level 140 mmol/L (136-145) Potassium Level 4.7 mmol/L (3.5-5.1) Chloride Level 99 mmol/L (98-107) Carbon Dioxide Level 35 mmol/L (20-31) Anion Gap 6 (5-15) Blood Urea Nitrogen 40 mg/dL (9-23) Creatinine 0.95 mg/dL (0.550-1.02) Glomerular Filtration Rate Calc 61 mL/min (>90) BUN/Creatinine Ratio 42.1 (10.0-20.0) Serum Glucose 78 mg/dL (74-106) Calcium Level 10.1 mg/dL (8.7-10.4) Urine Color Yellow (Yellow) Urine Clarity Turbid (Clear) Urine pH 5.0 (5.0-9.0) Urine Specific [place] 1.020 (1.001-1.035) Urine Protein Trace (Negative) Urine Ketones Trace (Negative) Urine Blood Negative /uL (Negative) Urine Nitrite Negative (Negative) Urine Bilirubin Negative (Negative) Urine Urobilinogen Normal mg/dL (Negative) Urine Leukocyte Esterase 3+ /uL (Negative) Urine RBC 5 /hpf (0 - 4) Urine Microscopic WBC 187 /HPF (0-5) Urine Squamous Epithelial Cells Few /hpf (<5) Urine Calcium Oxalate Crystals Many (None Seen) Urine Bacteria Few /hpf (None Seen) Urine Mucus Few (None Seen) Urine Glucose Normal mg/dL (Normal) Urine Opiates Screen Neg (NEGATIVE) Urine Fentanyl Screen Neg (NEGATIVE) Urine Barbiturates Screen Neg (NEGATIVE) Urine Phencyclidine Screen Neg (NEGATIVE) Urine Amphetamines Screen Neg (NEGATIVE) Urine Benzodiazepines Screen Neg (NEGATIVE) Urine Cocaine Screen Neg (NEGATIVE) Urine Cannabinoids Screen Neg (NEGATIVE) Cortisol AM Sample 28.36 ug/dL (5.27-22.45) Phosphorus Level 3.9 mg/dL (2.4-5.1) Magnesium Level 2.0 mg/dL (1.6-2.6) Free Thyroxine Index 1.3 (1.2-4.9) Thyroxine (T4) 5.8 ug/dL (4.5-12.0) Triiodothyronine (T3) Uptake 23 % (24-39) Test 08/09/24 15:36 08/09/24 04:41 08/08/24 14:24 Vitamin B1 Level 95.0 nmol/L (66.5-200.0) Vitamin B12 Level 351 pg/mL (211-911) Folic Acid 16.33 ng/mL (>5.38) Treponema pallidum Antibody Non-reactive (Negative) HIV (1&2) Antibody Negative (Negative) Total Bilirubin 1.0 mg/dL (0.2-1.0) Aspartate Amino Transferase (AST) 49 U/L (13-40) Alanine Aminotransferase (ALT) 44 U/L (7-40) Alkaline Phosphatase 103 U/L (46-116) Total Protein 7.0 g/dL (5.7-8.2) Albumin 4.3 g/dL (3.2-4.8) Thyroid Stimulating Hormone (TSH) 12.88 uIU/mL (0.55-4.78) Troponin I High Sensitivity 12 ng/L (</=34) Other Laboratory Tests 08/14/24 07:17 Brief Hx & Hospital Course: The patient is a 78-year-old female with past medical history of dementia and hypertension who presented to [facility] ED for evaluation of altered level of consciousness. Patient reports experiencing generalized weakness had a fall 3 days prior injuring her left foot, noted by staff member at SNF altered than usual for the past 3 days, locking herself in her room, loss of appetite, getting worse that prompted this visit. Patient was treated with IV Abx for UTI, symptoms improved. Patient also had a CT Chest/Abd/Pelvis see report below. Patient needs a Bone Scan as outpatient. Gastrografin was done, see report below. Operations or Procedures Procedure: CT CT CHEST/AB/PL W CON- IV ONLY 08/14/2024 05:17 PM Indication: malignancy Comparison Study: None Technique: Axial images were obtained and reformatted in coronal and sagittal planes. All CT scans at this medical facility are performed using dose modulation techniques as appropriate to a performed exam including the following: Automated exposure control was utilized; adjustment of the MA and/or KV according to patient size; and use of iterative reconstruction technique. CT Dose: CTDI volume is 6.09 mGy. Dose-length product is 415.04 mGy*cm FINDINGS: Lower neck: Thyroid is diminutive. Cardiomediastinal: The heart is normal in size. Aorta is normal in caliber. No mediastinal lymphadenopathy. Lungs: No focal pulmonary opacity. No pleural effusion. No pneumothorax. Hepatobiliary: Intrahepatic and extrahepatic ductal dilatation. The common bile duct measures up to 9 mm in caliber. Gallbladder is surgically absent. Spleen: Unremarkable. Pancreas: Unremarkable. Adrenal Glands: Unremarkable. tract: The kidneys are normal in size bilaterally without hydronephrosis . A 7 mm nonobstructing stone noted in the lower pole of the right kidney. A 5 mm nonobstructing stone seen in the left kidney. Small benign-appearing bilateral renal cysts are seen. The urinary bladder is unremarkable. GI tract: The stomach is grossly normal in appearance. Mildly distended small bowel loops in the upper abdomen measuring up to 2.2 cm in caliber. Surgical clips are seen in the left upper quadrant adjacent to the stomach and small bowel loops. Staple line noted in the left upper quadrant small bowel wall. The large bowel is unremarkable. The appendix is not visualized. No inflammatory change is noted in the right lower quadrant. Lymphatics: No mesenteric, retroperitoneal or periportal lymphadenopathy. Vasculature: The abdominal aorta is normal in in caliber. Pelvic Organs: Suboptimal evaluation due to beam hardening artifact from left hip arthroplasty. The uterus and adnexa are not well seen. Bones/soft tissues: Severe right hip joint osteoarthritis with several subchondral cysts. In addition, ill-defined lucent foci are seen in the acetabulum measuring up to 1.9 cm. Total left hip arthroplasty. Other: None. IMPRESSION: 1. Postoperative changes of the stomach and small bowel in the left upper quadrant. Mildly distended small bowel loops in the upper abdomen measuring up to 2.2 cm may represent ileus or developing obstruction. Recommend clinical and biochemical correlation. 2. Several lucent foci in the right acetabulum measuring up to 2 cm that may represent intraosseous cysts, primary or metastatic malignancy. Correlate with history of known malignancy. 3. Mild intrahepatic and extrahepatic ductal dilatation likely compensatory post cholecystectomy change. 4. No acute or suspicious abnormality in the chest. 5. Nonobstructing bilateral renal calculi. XY ESOPHAGUS GASTROGRAFIN SWALLOW, HISTORY: DYSPHAGIA COMPARISON: None PROCEDURE: A textile coating machine operator radiograph was obtained prior to the procedure. Barium and effervescent granules were administered orally, and radiographs were obtained under intermittent fluoroscopic observation. Total fluoroscopic time was 1 minute. FINDINGS: The textile coating machine operator film demonstrates post surgical changes of the stomach. The esophagus was prominent in caliber with no stricture, filling defect or wall irregularity demonstrated. Abnormal esophageal peristalsis was observed. Probable small hiatal hernia seen. IMPRESSION: Mildly abnormal esophageal contraction can be seen with dysmotility. Probable small hiatal hernia. Mild esophageal reflux. Condition at Discharge: Poor Final Diagnosis/Problems List Metabolic Encephalopathy- resolved Bone Lesions on CT- Bone Scan as outpatient Uncontrolled Hypothyroid- Synthroid Protein Calorie Malnutrition- Dietary Consult Dysphagia with weight loss- Swallow Eval, CT Chest Abd Pelvis reviewed. Discharge Disposition: Home Discharge Instruct/Medications Diet: Regular Activity: Light activity Follow Up/Referral: Dr. Glover in 2 weeks Medications: resume home meds Discharge Statement: "Patient was advised to return to the ER or call 911 if any headaches, dizziness, shortness of breath, chest pain, abdominal pain, bleeding, fevers, or worsening of medical condition. Patient was counseled about treatment plan, medications, possible side effects, patientverbalized understanding. All questions were answered to the best of my ability. This discharge took greater then 30 minutes in planning, reviewing documentation, counseling the patient, and discussing with other team members." ASSESSMENT ASSESSMENT Assessment Date of Service: Aug 16, 2024 Billing Provider: YANELI GLOVER MD Common Visit Codes: [id number] DISCH DAY >30min YANELI GLOVER MD Aug 16, 2024 11:10
[2024-08-16] MEDS: QUEtiapine FUMARATE 25 MG TAB PO SCH (21:44)
[2024-08-17 05:00] VITALS: BP 139/84; PULSE 82; RESP 20; TEMP 97.9; O2SAT 97
[2024-08-17 12:27] VITALS: BP 138/72; PULSE 84; RESP 17; TEMP 98.4; O2SAT 97
[2024-08-17] MEDS ORDERED: QUET1TAB11 PO (14:37)
[2024-08-17] MEDS ORDERED: LEVO-849 PO (14:37)
[2024-08-17] MEDS: QUEtiapine FUMARATE 25 MG TAB PO ONE (15:15)
--- NOTE | 2024-08-17 16:01 | DVHPN2 ---
Subjective Seen and examined at bedside, For DC Home today. Changes from previous H/P or p: No Changes Eyes: No Pain, No Vision change, No Conjunctivae inflammation, No Eyelid inflammation, No Other, No Redness ENT: No Ear pain, No Ear discharge, No Nose pain, No Nose discharge, No Nose congestion, No Mouth pain, No Mouth swelling, No Throat pain, No Throat swelling, No Other Cardiovascular: No Chest Pain, No Palpitations, No Orthopnea, No Paroxysmal Noc. Dyspnea, No Edema, No Lt Headedness, No Other Respiratory: No Cough, No Dry, No Shortness of breath, No SOB with excertion, No Wheezing, No Hemoptysis, No Pleuritic Pain, No Sputum, No Other Gastrointestinal: No Nausea, No Vomiting, No Abdominal Pain, No Diarrhea, No Constipation, No Melena, No Hematochezia, No Other Genitourinary: No Dysuria, No Frequency, No Incontinence, No Hematuria, No Retention, No Other Musculoskeletal: No other, No neck pain, No shoulder pain, No arm pain, No back pain, No hand pain, No leg pain, No foot pain Skin: No Rash, No Lesions, No Jaundice, No Bruising, No Other Objective Vitals Vital Signs Date Time Temp Pulse Resp B/P (MAP) Pulse Ox O2 Delivery O2 Flow Rate FiO2 08/17/24 12:27 98.4 84 17 138/72 (94) 97 98.4 08/17/24 08:00 Room Air* 0 21 Intake/Output Intake and Output 08/17/24 07:00 Intake Total 1140 ml Balance 1140 ml Intake Oral 1090 ml IV Total 50 ml # Voids 6 # Bowel Movements 5 Exam Gen: in bed thin Cvs: N S1/S2, RRR Resp: BLAE Abd: Thin, Cachectic Costumed Character: AAx 3 Medications Current Medications Medications Dose Ordered Sig/Carlyn Route Start Time Stop Time Status Last Admin Dose Admin Haloperidol Lactate 2.5 mg Q8HP PRN IM 08/09/24 15:30 Melatonin 5 mg HS PO 08/09/24 22:00 08/09/24 21:19 5 MG Enteral Nutritional Formula 240 ml TIDWM PO 08/09/24 18:00 08/17/24 12:00 240 ML Acetaminophen 650 mg Q6HP PRN PO 08/09/24 15:30 Ibuprofen 400 mg Q8HP PRN PO 08/09/24 15:30 Ceftriaxone Sodium 50 ml @ 100 mls/hr DAILY@09 IV 08/12/24 09:00 08/16/24 09:15 100 MLS/HR Cyanocobalamin 100 mcg DAILY IM 08/15/24 10:00 08/16/24 09:16 100 MCG Levothyroxine Sodium 25 mcg QAM PO 08/16/24 07:00 Quetiapine Fumarate 25 mg HS PO 08/16/24 22:00 08/16/24 21:44 25 MG Laboratory Results Laboratory Tests 08/14/24 07:17 Urinalysis Test 08/10/24 23:40 Urine Color Yellow (Yellow) Urine Clarity Turbid (Clear) H Urine pH 5.0 (5.0-9.0) Urine Specific [place] 1.020 (1.001-1.035) Urine Protein Trace (Negative) H Urine Ketones Trace (Negative) Urine Blood Negative /uL (Negative) Urine Nitrite Negative (Negative) Urine Bilirubin Negative (Negative) Urine Urobilinogen Normal mg/dL (Negative) Urine Leukocyte Esterase 3+ /uL (Negative) Urine RBC 5 /hpf (0 - 4) Urine Microscopic WBC 187 /HPF (0-5) H Urine Squamous Epithelial Cells Few /hpf (<5) Urine Calcium Oxalate Crystals Many (None Seen) Urine Bacteria Few /hpf (None Seen) H Urine Mucus Few (None Seen) Urine Glucose Normal mg/dL (Normal) Assessment/Plan Assessment/Plan Metabolic Encephalopathy- Likely due to Complicated Cystitis. Added Seroquel Bone Lesions on CT- Bone Scan as outpatient Uncontrolled Hypothyroid- Synthroid Protein Calorie Malnutrition- Dietary Consult Dysphagia with weight loss- Swallow Eval, CT Chest Abd Pelvis reviewed DVT Prop- SCDs DC Planning Plan discussed with: Patient My Orders Orders - YANELI WAGONER MD Procedure Category Date Status Time Discharge DISCHARGE 08/17/24 Transmitted 11:11 Date of Service: Aug 17, 2024 Billing Provider: YANELI WAGONER MD Common Visit Codes: [id number] INP/OBS CARE(LOW) YANELI WAGONER MD Aug 17, 2024 16:01
[2024-08-17] MEDS ORDERED: HALOPERIDOL LACTATE 5 MG/ML INJ VIAL IM PRN (18:00)
[2024-08-17] MEDS: HALOPERIDOL LACTATE 5 MG/ML INJ VIAL IM PRN (18:13)
== END 2024-08-17 18:45 | disposition home or self-care (01) | DRG 689 ==
LOC: ER 10:08 → EDBD 10:08 → OVERFLOW 16:17 → TELE-WESTW 08-09 16:16 → WEST WING 08-10 19:33
PROVIDERS: ADMIT Internal Medicine; ATTEND Internal Medicine
DX: N30.90 Cystitis, unspecified without hematuria (principal); G93.41 Metabolic encephalopathy; E46 Unspecified protein-calorie malnutrition; Z68.1 Body mass index [BMI] 19.9 or less, adult; R62.7 Adult failure to thrive; F03.90 Unspecified dementia, unspecified severity, without behavioral disturbance, psychotic disturbance, mood disturbance, and anxiety; E03.9 Hypothyroidism, unspecified; R74.01 Elevation of levels of liver transaminase levels; R13.10 Dysphagia, unspecified; I10 Essential (primary) hypertension; Z79.899 Other long term (current) drug therapy
CPT/HCPCS: 36415; 71260; 73620; 74177; 74220; 80048; 80053; 80307; 81001; 82533; 82607; 82746; 83735; 84100; 84425; 84443; 84484; 85025; 86703; 86780; 92610; G0378